=== PATIENT | female | born 1990 | race Caucasian/White ===

== ENCOUNTER 2025-02-06 15:11 | Outpatient (AMB) | payer BC, SELFPAY ==
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
[2025-02-06 15:29] VITALS: BP 100/68; PULSE 125; TEMP 36.8; O2SAT 99; BMI 21.5
[2025-02-06 15:54] VITALS: PULSE 104
--- OUTSIDE RECORDS SUMMARY | 2025-02-06 17:48 | XMS_ITS | Continuity of Care Document ---
Author Organization [facility] Address [address] [place] [address] Phone Care Team Providers Care Commercial Portfolio Manager Name Role Phone Unavailable Unavailable Unavailable Allergies, [...] Diagnoses Date Provider Providers Copied on Encounter [facility], [id number] [place] [address], [facility], tel:[phone] [facility] blurry vision (chief complaint) Refraction error No [...]
== END 2025-02-06 16:05 | disposition home or self-care (01) ==
LOC: HO.HMCFM 15:12
PROVIDERS: PCP Physician Assistant Medical; Visit Provider Physician Assistant Medical
DX: Z13.6 Encounter for screening for cardiovascular disorders (principal); L65.9 Nonscarring hair loss, unspecified; Z00.00 Encounter for general adult medical examination without abnormal findings

== ENCOUNTER → 2025-02-06 15:11 | Outpatient (BNVA) | payer BC, SELFPAY | PROVIDERS: PCP Physician Assistant Medical; Visit Provider Physician Assistant Medical | DX: Z00.00 Encounter for general adult medical examination without abnormal findings (principal); Z13.31 Encounter for screening for depression; L65.9 Nonscarring hair loss, unspecified | CPT/HCPCS: 96127 ==

== ENCOUNTER 2025-03-22 07:02 | Outpatient (REF) | payer BC, SELFPAY ==
--- OUTSIDE RECORDS SUMMARY | 2015-05-05 05:30 | XMS_ITS | Continuity of Care Document ---
Author Organization [facility] Address [address] [place] [address] Phone Care Team Providers Care Calibration Specialist Name Role Phone Unavailable Unavailable Unavailable Allergies, Adverse Reactions, Alerts Substance Reaction Status Criticality No Known Allergies Active No Inform ation Medications Medication Instructions Dosage Effective Dates (start - stop) Status Comments No Drug Therapy Prescribed Procedures Procedure Date EYE EXAM, NEW PATIENT REFRACTION Advance Directives Directive Yes / No Effective Date File Name No Information Encounters Encounter Description Practice Location Reason(s) For Visit Diagnoses Date Provider Providers Copied on Encounter [facility], [id number] [place] [address], [facility], tel:[phone] [facility] blurry vision (chief complaint) Refraction error No Information Family History Family Member Type Diagnosis Age At Onset Grandmother (m) Problem (finding) malignant melanoma Father Problem (finding) Cancer Grandfather (p) Problem (finding) blindness Grandmother (m) Problem (finding) blindness Father Problem (finding) degenerative disorder o f macula Father Problem (finding) Heart Disease Payers Payer name Insurance type Covered green party ID Authoriza tion(s) No Information Social History Type Description Quantity Date Captured Comments Alcohol Use Details Unknown Caffeine Use Details Unknown Tobacco Use Status Never smoked tobacco 2014 Smoking Status Never smoker Non-Smoking Tobacco Use Details : No Details Available : No Details Available Sex Female Chief Complaint And Reason For Visit From encounter dated '05/05/2015 09:30'. blurry vision (chief complaint). Description: The 24 year old female presents for evaluation of blurry vision in the right eye and left eye. The onset was unsure. It affects both near and far vision.In addition, mother has noticed Left eye drifting after long computer use, new onset within few months. no diplopia, or JOHNSON's. Reason For Referral Reason For Referral No Information History Of Present Illness Encounter Date Complaint History Of Prese nt Illness blurry vision The 24 year old female presents for evaluation of blurry vision in the right eye and left eye. The onset was unsure. It affects both near and far vision. In addition, mother has noticed Left eye drifting after long computer use, new onset within few months. no diplopia, or JOHNSON's. Functional Status Date Functional Assessmen t No Information Medications Administered Medication Instructions Dosage Effective Dates (start - stop) Status Comments No Drug Therapy Prescribed Instructions Date Instruction Additional Infor mation Return to clinic in [address] Chapito Hameed for comprehensive eye exam. Related to Refraction error Impression/Plan - Re fractive error, mild. pt asymptomatic, Glasses not prescribed. Related to Refraction error Follow up - Return t o clinic in [address] Chapito Hameed for comprehensive eye exam. Related to Refraction error Assessments Type Assessment Date assessment Refraction error impression Refraction error: 367.9. 2014 Patient Care Teams Name Effective Dates (start - stop) Status Members No Information
--- OUTSIDE RECORDS SUMMARY | 2025-03-22 07:06 | XMS_ITS | Clinical Summary ---
Author Organization [facility] Address [address] [facility] [address] [place] [address] Phone Care Team Providers Care Arc Welder Name Role Phone Flor Hidalgo MD Primary Care Provider Allergies No known active allergies Medications buPROPion (WELLBUTRIN XL) 150 MG ER 24 hr tablet 08/08/2024 Active dextroamphetami ne-amphetamine (ADDERALL) 5 mg Tab Take 5 mg by mouth nightly at bedtime as needed. 07/20/2024 Active escitalopram oxalate (LEXAPRO) 20 MG tablet Take 15 mg by mouth every morning. 07/20/2024 Active lisdexamfetamin e (VYVANSE) 50 MG capsule Take 50 mg by mouth every morning. 07/21/2024 Active prazosin (MINIPRESS) 1 MG capsule Take 1 mg by mouth nightly at bedtime. 07/11/2024 Active vilazodone (VIIBRYD) 10 mg Tab Take 10 mg by mouth daily. Active Social History Tobacco Use Types Packs/Day Years Used Date Smoking Tobacco: Never Smokeless Tobacco: Never Tobacco Cessation:Counseling Given: Not Answered Education Answer Date Recorded Are you interested in more education? Not on juli e 06/06/2024 Are you concerned about learning? Not on file 06/06/2024 No 06/06/2024 No 06/06/2024 Digital Access Answer Date Recorded No 06/06/2024 No 06/06/2024 Reliable internet access at home? Not on file 06/06/2024 Device with a working camera? Not on file Comments Unknown Sex and Gender Information Value Date Recorded Sex Assigned at Female 09/25/2024 3:29 PM EST Legal Sex Female 11:07 AM EDT Gender Identity Female 09/25/2024 3:29 PM EST Sexual Orientation Lesbian or Tejeda 09/25/2024 3: 29 PM EST Last Filed Vital Signs Vital Sign Reading Time Taken Comments Blood Pressure 116/85 08/13/2024 12:27 PM EST Pulse 94 08/13/2024 12:27 PM EST Temperature 36.1 C (97 F) 08/13/2024 12:27 PM EST Respiratory Rate 17 08/13/2024 12:27 PM EST Oxygen Saturation 100% 08/13/2024 12:27 PM EST Inhaled Oxygen Concentration - - Weight 59 kg (130 lb) 08/13/2024 12:27 PM EST Height 170.2 cm (5' 7 ) 08/13/2024 12:27 PM EST Body Mass Index 20.36 08/13/2024 12:27 PM EST Plan of Treatment Health Maintenance Due Date Last Done Comments Adult Td,Tdap Booster 1992 DEPRESSION SCREENING 2004 HEPATITIS C SCREENING 2010 HIV ONE-TIME SCREENING (18-6 5 YEARS) 2010 PAP SMEAR 2013 COVID-19 VACCINE (2023-2 5 season) 2024 SMOKING STATUS SCREENING (On ce After 26 Yrs) Completed 10/08/2024 HEPATITIS A VACCINES Aged Out No long er eligible based on patient's age to complete this topic HIB VACCINES Aged Out No longer eligi ble based on patient's age to complete this topic MENINGOCOCCAL VACCINES (ACWY) Aged Out No longer eligible based on patient's age to complete this topic MENINGOCOCCAL VACCINES (B) Aged Out N o longer eligible based on patient's age to complete this topic PNEUMOCOCCAL VACCINES (0-49 years) Aged Out No longer eligible based on patient's age to complete this topic Medical Devices Not on file Insurance [facility] [place] [address] [address] [place] [address] [place] [address] [place] [address] [facility] Care Teams Arc Welder Relationship Specialty Start Date End Date Flor Hidalgo MD [facility] [place] [id number] PCP - General Internal Medicine 08/13/24 Additional Source Comments The information contained in this document represents components of the legal health record. It is not the complete legal health record.[facility]
[2025-03-22 11:23] LABS: Hematocrit 36.8 % (37.0-47.0); Hemoglobin 12.6 g/dl (12.0-16.0); Mean Corpuscular HGB Conc 34.2 g/dl (31.0-35.0); Mean Corpuscular Hemoglobin 29.5 pg (27.0-33.0); Mean Corpuscular Volume 86.2 fL (80.0-98.0); NRBC Abs Auto 0.000 X10*3/uL (0.0-0.012); NRBC Pct Auto 0.0 /100WBC (0.0-0.2); Platelet Count 272 X10*3/uL (160-400); Red Blood Count 4.27 X10*6/uL (4.20-5.50); White Blood Count 6.8 X10*3/uL (4.8-10.8)
[2025-03-22 11:55] LABS: Alanine Aminotransferase 12 U/L (0-31); Albumin Level 4.4 g/dL (3.5-5.0); Alkaline Phosphatase 60 U/L (39-117); Anion Gap 12 (12-20); Aspartate Amino Transferase 27 U/L (5-31); Blood Urea Nitrogen 12 mg/dL (9-16); Calcium 8.9 mg/dL (8.4-10.2); Carbon Dioxide 26 mmol/L (22-29); Chloride 105 mmol/L (96-108); Cholesterol 168 mg/dL (<200); Estimated Glomerular Filt Rate > 60; HDL Cholesterol 61 mg/dL (>40); Potassium 3.7 mmol/L (3.3-5.1); Sodium 139 mmol/L (135-145); Total Protein 7.1 g/dL (6.5-8.0); Triglycerides 82 mg/dL (<150)
[2025-03-24 09:10] LABS: Follicle Stimulating Hormone 2.4 mIU/mL
[2025-03-24 20:00] LABS: Immunoglobulin A 244 mg/dL (47-310)
[2025-03-26 18:14] LABS: Transglutaminase Ab IgG <1.0 U/mL
[2025-03-27 16:28] LABS: Vitamin D 25-OH, D2 <4 ng/mL; Vitamin D 25-OH, D3 38 ng/mL; Vitamin D 25-OH, Total 38 ng/mL (30-100)
== END 2025-03-22 07:03 | disposition home or self-care (01) ==
LOC: HO.HMGCLDS 07:02
PROVIDERS: PCP Physician Assistant Medical; Visit Provider Physician Assistant Medical
DX: Z00.00 Encounter for general adult medical examination without abnormal findings (principal); L65.9 Nonscarring hair loss, unspecified; Z13.6 Encounter for screening for cardiovascular disorders; F43.10 Post-traumatic stress disorder, unspecified
CPT/HCPCS: 36415; 80053; 80061; 82306; 82672; 82784; 83001; 83002; 84443; 85027; 86231; 86364